=== PATIENT | female | born 1930 | race Caucasian/White ===

== ENCOUNTER 2018-03-07 08:27 | Inpatient (IN) ==
[2018-03-07] MEDS ORDERED: VANCOMYCIN INJ 1,000 MG in SODIUM CHLORIDE 0.9% 250 ML IV ONE (11:02)
[2018-03-07] MEDS ORDERED: MORPHINE 4 MG/1 ML VIAL IV PRN ×2 (11:05)
[2018-03-07] MEDS ORDERED: ONDANSETRON 4 MG/2 ML VIAL IV PRN (11:16)
[2018-03-07 13:14] LABS: Basophils % 0.2 % (0.0-0.8); Eosinophils % 0.1 % (0.00-10.9); Hematocrit 30.7 VOL% (35.7-47.0); Hemoglobin 10.2 GM/DL (12.0-16.0); Immature Granulocytes % 0.6 %; Immature Granulocytes Absolute 0.07 #; Lymphocytes # 0.4 10*3/uL (1.4-4.0); Lymphocytes % 3.4 % (21.3-54.2); Mean Corpuscular HGB Conc 33.2 GM/DL (32-36); Mean Corpuscular Hemoglobin 31 PG (27-34); Mean Corpuscular Volume 94.5 FL (87-102); Mean Platelet Volume 11.1 FL (9.6-12.0); Monocytes # 0.6 10*3/uL (0.11-0.8); Monocytes % 5.2 % (1.7-12.7); Neutrophils # 10.7 10*3/uL (1.4-7.4); Neutrophils % 90.5 % (38.7-73.9); Platelet Count 104 T/CUMM (130-400); Red Blood Count 3.25 MC/CUMM (3.8-5.5); Red Cell Distribution Width 13.5 % (9.3-17.3); White Blood Count 11.8 T/CUMM (4-12)
[2018-03-07 13:40] LABS: PT Patient Result 30.4 SECS
[2018-03-07 13:44] LABS: Calcium 8.5 MG/DL (8.5-10.1); Osmolality,Calculated 293.1 MOS/KG (273-304); Potassium 4.3 MMOL/L (3.5-5.1)
[2018-03-07 13:54] LABS: Lymphocytes 1 % (20-55); Segmented Neutrophils 94 % (50-85); Total Cells Counted 100
[2018-03-07 13:55] LABS: Hypochromasia 1+; Microcytosis Slight; Ovalocytes Few; Platelet Estimate Adequate
[2018-03-07] MEDS ORDERED: MAGNESIUM SULF RIDER 4 GM in PREMIX 1 EACH IV PRN (17:04)
[2018-03-07] MEDS: MAGNESIUM SULF RIDER 2 GM in PREMIX 1 EACH IV PRN (17:34)
[2018-03-07] MEDS: FUROSEMIDE 40 MG TABLET PO SCH (21:12)
[2018-03-07 22:20] LABS: Apearance,Urine CLEAR (Clear); Bacteria,Urine Occasional /HPF (Few); Bilirubin,Urine Negative (Negative); Blood, Urine Moderate mg/dL (Negative); Glucose,Urine (UA) Negative (Negative); Ketones,Urine Negative (Negative); Mucus,Urine Occasional /LPF (Occasional); Nitrite,Urine Negative (Negative); Protein,Urine Negative; RBC,Urine 13 /HPF (0-4); Urine Color Yellow (Yellow); Urine Urobilinogen < 2.0 EU/DL (0.2-1.0); WBC,Urine 1 /HPF (0-6)
[2018-03-08 03:39] LABS: Basophils % 0.3 % (0.0-0.8); Eosinophils # 0.2 10*3/uL (0.0-0.87); Hematocrit 26.8 VOL% (35.7-47.0); Hemoglobin 8.9 GM/DL (12.0-16.0); Immature Granulocytes % 0.4 %; Immature Granulocytes Absolute 0.03 #; Lymphocytes # 0.7 10*3/uL (1.4-4.0); Lymphocytes % 8.5 % (21.3-54.2); Mean Corpuscular HGB Conc 33.2 GM/DL (32-36); Mean Corpuscular Hemoglobin 31 PG (27-34); Mean Corpuscular Volume 93.4 FL (87-102); Mean Platelet Volume 11.3 FL (9.6-12.0); Monocytes # 0.5 10*3/uL (0.11-0.8); Monocytes % 6.5 % (1.7-12.7); Neutrophils # 6.2 10*3/uL (1.4-7.4); Neutrophils % 81.3 % (38.7-73.9); Platelet Count 95 T/CUMM (130-400); Red Blood Count 2.87 MC/CUMM (3.8-5.5); Red Cell Distribution Width 13.5 % (9.3-17.3); White Blood Count 7.7 T/CUMM (4-12)
[2018-03-08 03:45] LABS: INR 3.7; INR 3.8; PT Patient Result 37.5 SECS; PT Patient Result 38.1 SECS
[2018-03-08 04:03] LABS: Calcium 8.4 MG/DL (8.5-10.1); Osmolality,Calculated 287.4 MOS/KG (273-304); Potassium 4.1 MMOL/L (3.5-5.1)
[2018-03-08 04:09] LABS: Risk Ratio 2.05
[2018-03-08 04:10] LABS: Anisocytosis 1+; Band Neutrophils 3 % (0-10); Eosinophils 5 % (0-10); Lymphocytes 7 % (20-55); Ovalocytes 1+; Segmented Neutrophils 83 % (50-85); Total Cells Counted 100
[2018-03-08 04:11] LABS: Acanthocytes Few; Platelet Estimate Adequate
[2018-03-08] MEDS ORDERED: PHYTONADIONE 10 MG/1 ML AMP IV ONE (07:45)
[2018-03-08] MEDS: ACETAMINOPHEN 325 MG TABLET PO PRN ×2 (08:11→20:27)
[2018-03-08] MEDS: PANTOPRAZOLE 40 MG TABLET PO SCH (09:36)
[2018-03-08] MEDS: BISACODYL 5 MG TABLET PO SCH (09:36)
[2018-03-08] MEDS: POTASSIUM CHLORIDE 20 MEQ TABLET PO SCH (09:36)
[2018-03-08] MEDS: ANASTROZOLE 1 MG TABLET PO SCH (09:36)
[2018-03-08] MEDS: FUROSEMIDE 40 MG TABLET PO SCH ×2 (10:01→20:20)
[2018-03-08] MEDS ORDERED: ceFAZolin 1,000 MG in SYRINGE 1 EACH IV ONE (11:02)
[2018-03-09 06:20] LABS: Basophils % 0.1 % (0.0-0.8); Eosinophils # 0.1 10*3/uL (0.0-0.87); Eosinophils % 1.4 % (0.00-10.9); Hematocrit 26.6 VOL% (35.7-47.0); Hemoglobin 8.9 GM/DL (12.0-16.0); Immature Granulocytes % 0.6 %; Immature Granulocytes Absolute 0.06 #; Lymphocytes # 0.7 10*3/uL (1.4-4.0); Lymphocytes % 7.3 % (21.3-54.2); Mean Corpuscular HGB Conc 33.5 GM/DL (32-36); Mean Corpuscular Hemoglobin 31 PG (27-34); Mean Corpuscular Volume 92.7 FL (87-102); Mean Platelet Volume 11.9 FL (9.6-12.0); Monocytes # 0.8 10*3/uL (0.11-0.8); Monocytes % 8.4 % (1.7-12.7); Neutrophils % 82.2 % (38.7-73.9); Red Blood Count 2.87 MC/CUMM (3.8-5.5); Red Cell Distribution Width 13.5 % (9.3-17.3); White Blood Count 9.8 T/CUMM (4-12)
[2018-03-09 06:22] LABS: Platelet Count 92 T/CUMM (130-400)
[2018-03-09 06:24] LABS: INR 1.2; PT Patient Result 12.3 SECS
[2018-03-09 06:32] LABS: Calcium 8.6 MG/DL (8.5-10.1); Osmolality,Calculated 278.1 MOS/KG (273-304); Potassium 4.2 MMOL/L (3.5-5.1)
[2018-03-09 06:39] LABS: Hypochromasia 1+; Microcytosis Slight; Ovalocytes Slight; Platelet Estimate Decreased
[2018-03-09] MEDS ORDERED: VANCOMYCIN INJ 1,000 MG in SODIUM CHLORIDE 0.9% 250 ML IV ONE (07:05)
[2018-03-09] MEDS ORDERED: ceFAZolin 1,000 MG in SYRINGE 1 EACH IV ONE (10:00)
[2018-03-09] MEDS: FUROSEMIDE 40 MG TABLET PO SCH ×2 (11:40→20:26)
[2018-03-09] MEDS: BISACODYL 5 MG TABLET PO SCH (11:40)
[2018-03-09] MEDS: POTASSIUM CHLORIDE 20 MEQ TABLET PO SCH (11:40)
[2018-03-09] MEDS: ANASTROZOLE 1 MG TABLET PO SCH (11:40)
[2018-03-09] MEDS: PANTOPRAZOLE 40 MG TABLET PO SCH (11:41)
[2018-03-09] MEDS ORDERED: BACITRACIN OINT 0.9 GM PACK TOP ONE (12:32)
[2018-03-09] MEDS ORDERED: ceFAZolin 1,000 MG VIAL ONE (12:33)
[2018-03-09] MEDS ORDERED: BUPIVACAINE MPF 0.25% 30 ML VIAL ONE (13:26)
[2018-03-09] MEDS ORDERED: oxyCODONE IR 5 MG TABLET PO PRN (14:09)
[2018-03-09] MEDS ORDERED: DESFLURANE 1 UNIT/15 MINUTE INH ONE (14:22)
[2018-03-09] MEDS ORDERED: ETOMIDATE 40 MG/20 ML VIAL IV ONE (14:22)
[2018-03-09] MEDS ORDERED: GLYCOPYRROLATE 0.4 MG/2 ML VIAL ONE (14:22)
[2018-03-09] MEDS ORDERED: fentaNYL 100 MCG/2 ML VIAL ONE (14:22)
[2018-03-09] MEDS ORDERED: ROCURONIUM 100 MG/10 ML VIAL IV ONE (14:23)
[2018-03-09] MEDS ORDERED: NEOSTIGMINE 10 MG/10 ML VIAL ONE (14:23)
[2018-03-09] MEDS ORDERED: PHENYLEPHRINE 1 MG/10 ML SYRINGE IV ONE (14:23)
[2018-03-09] MEDS: LACTATED RINGERS 1,000 ML IV SCH (15:07)
[2018-03-09] MEDS: ceFAZolin 1,000 MG in SYRINGE 1 EACH IV SCH (18:07)
[2018-03-09] MEDS: ACETAMINOPHEN 500 MG TABLET PO SCH (18:12)
[2018-03-09] MEDS ORDERED: SODIUM CHLORIDE 0.9% 500 ML IV ONE ×2 (19:14→22:40)
[2018-03-09] MEDS: DOCUSATE SODIUM 100 MG CAPSULE PO SCH (20:25)
[2018-03-10] MEDS: ACETAMINOPHEN 500 MG TABLET PO SCH ×3 (01:30→12:05)
[2018-03-10] MEDS: LACTATED RINGERS 1,000 ML IV SCH (03:07)
[2018-03-10] MEDS ORDERED: ceFAZolin 1,000 MG in SYRINGE 1 EACH IV SCH (05:30)
[2018-03-10] MEDS: ceFAZolin 1,000 MG in SYRINGE 1 EACH IV SCH (06:04)
[2018-03-10 06:37] LABS: INR 1.2; PT Patient Result 12.3 SECS
[2018-03-10 06:57] LABS: Calcium 7.5 MG/DL (8.5-10.1); Osmolality,Calculated 280.8 MOS/KG (273-304); Potassium 4.3 MMOL/L (3.5-5.1)
[2018-03-10] MEDS ORDERED: ceFAZolin 1,000 MG in SYRINGE 1 EACH IV ONE (07:30)
[2018-03-10 07:33] LABS: Basophils % 0.2 % (0.0-0.8); Eosinophils # 0.3 10*3/uL (0.0-0.87); Eosinophils % 3.9 % (0.00-10.9); Hematocrit 22.2 VOL% (35.7-47.0); Hemoglobin 7.3 GM/DL (12.0-16.0); Immature Granulocytes % 0.8 %; Immature Granulocytes Absolute 0.07 #; Lymphocytes # 0.7 10*3/uL (1.4-4.0); Lymphocytes % 7.4 % (21.3-54.2); Mean Corpuscular HGB Conc 32.9 GM/DL (32-36); Mean Corpuscular Hemoglobin 32 PG (27-34); Mean Corpuscular Volume 97.8 FL (87-102); Mean Platelet Volume 11.6 FL (9.6-12.0); Monocytes # 0.7 10*3/uL (0.11-0.8); Monocytes % 8.4 % (1.7-12.7); Neutrophils % 79.3 % (38.7-73.9); Platelet Count 70 T/CUMM (130-400); Red Blood Count 2.27 MC/CUMM (3.8-5.5); Red Cell Distribution Width 13.6 % (9.3-17.3); White Blood Count 8.8 T/CUMM (4-12)
[2018-03-10 07:52] LABS: Hypochromasia 1+; Microcytosis Slight; Ovalocytes Slight; Platelet Estimate Decreased
[2018-03-10] MEDS ORDERED: SODIUM CHLORIDE 0.9% 1,000 ML IV PRN (08:26)
[2018-03-10] MEDS ORDERED: FUROSEMIDE 40 MG/4 ML VIAL IV ONE ×2 (10:00→21:30)
[2018-03-10] MEDS: MAGNESIUM SULF RIDER 2 GM in PREMIX 1 EACH IV PRN (10:22)
[2018-03-10] MEDS: PANTOPRAZOLE 40 MG TABLET PO SCH (10:24)
[2018-03-10] MEDS: ANASTROZOLE 1 MG TABLET PO SCH (10:24)
[2018-03-10] MEDS: POTASSIUM CHLORIDE 20 MEQ TABLET PO SCH (10:25)
[2018-03-10] MEDS: DOCUSATE SODIUM 100 MG CAPSULE PO SCH ×2 (10:25→21:49)
[2018-03-10] MEDS: BISACODYL 5 MG TABLET PO SCH (10:25)
[2018-03-10] MEDS: FUROSEMIDE 40 MG TABLET PO SCH ×2 (10:25→21:50)
[2018-03-10] MEDS: FONDAPARINUX 2.5 MG/0.5 ML SYRINGE SUBCUT SCH (10:30)
[2018-03-10] MEDS: WARFARIN 10 MG TABLET PO SCH (17:54)
[2018-03-10] MEDS ORDERED: WARFARIN 5 MG TABLET PO SCH (18:00)
[2018-03-11 06:53] LABS: Basophils % 0.1 % (0.0-0.8); Eosinophils # 0.3 10*3/uL (0.0-0.87); Eosinophils % 2.8 % (0.00-10.9); Hematocrit 26.3 VOL% (35.7-47.0); Immature Granulocytes % 0.9 %; Immature Granulocytes Absolute 0.09 #; Lymphocytes # 0.6 10*3/uL (1.4-4.0); Lymphocytes % 5.9 % (21.3-54.2); Mean Corpuscular HGB Conc 33.5 GM/DL (32-36); Mean Corpuscular Hemoglobin 30 PG (27-34); Mean Corpuscular Volume 89.5 FL (87-102); Monocytes # 0.8 10*3/uL (0.11-0.8); Monocytes % 7.6 % (1.7-12.7); Neutrophils # 8.7 10*3/uL (1.4-7.4); Neutrophils % 82.7 % (38.7-73.9); Red Cell Distribution Width 16.4 % (9.3-17.3); White Blood Count 10.5 T/CUMM (4-12)
[2018-03-11 06:55] LABS: Hemoglobin 8.8 GM/DL (12.0-16.0); Platelet Count 82 T/CUMM (130-400); Red Blood Count 2.94 MC/CUMM (3.8-5.5)
[2018-03-11 07:02] LABS: INR 1.3; PT Patient Result 13.5 SECS
[2018-03-11 07:10] LABS: Hypochromasia 1+; Platelet Estimate Decreased
[2018-03-11 07:11] LABS: Elliptocytes Few
[2018-03-11 07:18] LABS: Calcium 7.8 MG/DL (8.5-10.1); Osmolality,Calculated 280.1 MOS/KG (273-304); Potassium 4.2 MMOL/L (3.5-5.1)
[2018-03-11] MEDS: ANASTROZOLE 1 MG TABLET PO SCH (08:37)
[2018-03-11] MEDS: DOCUSATE SODIUM 100 MG CAPSULE PO SCH ×2 (08:37→20:18)
[2018-03-11] MEDS: PANTOPRAZOLE 40 MG TABLET PO SCH (08:38)
[2018-03-11] MEDS: BISACODYL 5 MG TABLET PO SCH (08:39)
[2018-03-11] MEDS: FUROSEMIDE 40 MG TABLET PO SCH ×2 (08:39→20:18)
[2018-03-11] MEDS: POTASSIUM CHLORIDE 20 MEQ TABLET PO SCH (08:39)
[2018-03-11] MEDS: FONDAPARINUX 2.5 MG/0.5 ML SYRINGE SUBCUT SCH (08:42)
[2018-03-11] MEDS: MAGNESIUM HYDROXIDE SUSP 30 ML UDCUP PO PRN ×2 (08:44→18:50)
[2018-03-11] MEDS: WARFARIN 10 MG TABLET PO SCH (18:50)
[2018-03-11] MEDS: ACETAMINOPHEN 325 MG TABLET PO PRN (20:18)
[2018-03-12] MEDS: MAGNESIUM HYDROXIDE SUSP 30 ML UDCUP PO PRN (06:12)
[2018-03-12 06:57] LABS: Basophils % 0.2 % (0.0-0.8); Eosinophils # 0.2 10*3/uL (0.0-0.87); Eosinophils % 2.2 % (0.00-10.9); Hematocrit 25.9 VOL% (35.7-47.0); Hemoglobin 8.6 GM/DL (12.0-16.0); Immature Granulocytes % 1.4 %; Immature Granulocytes Absolute 0.14 #; Lymphocytes # 0.7 10*3/uL (1.4-4.0); Lymphocytes % 6.5 % (21.3-54.2); Mean Corpuscular HGB Conc 33.2 GM/DL (32-36); Mean Corpuscular Hemoglobin 30 PG (27-34); Mean Corpuscular Volume 91.5 FL (87-102); Mean Platelet Volume 11.8 FL (9.6-12.0); Monocytes # 0.8 10*3/uL (0.11-0.8); Monocytes % 8.2 % (1.7-12.7); Neutrophils # 8.1 10*3/uL (1.4-7.4); Neutrophils % 81.5 % (38.7-73.9); Platelet Count 115 T/CUMM (130-400); Red Blood Count 2.83 MC/CUMM (3.8-5.5); Red Cell Distribution Width 16.1 % (9.3-17.3); White Blood Count 9.9 T/CUMM (4-12)
[2018-03-12 07:04] LABS: PT Patient Result 20.7 SECS
[2018-03-12 07:10] LABS: PT Patient Result 20.6 SECS
[2018-03-12 07:23] LABS: Calcium 7.5 MG/DL (8.5-10.1); Osmolality,Calculated 280.1 MOS/KG (273-304); Potassium 3.8 MMOL/L (3.5-5.1)
[2018-03-12] MEDS ORDERED: SODIUM CHLORIDE 0.9% 1,000 ML IV PRN (08:50)
[2018-03-12] MEDS ORDERED: FUROSEMIDE 40 MG/4 ML VIAL IV ONE (08:50)
[2018-03-12] MEDS: ANASTROZOLE 1 MG TABLET PO SCH (09:16)
[2018-03-12] MEDS: DOCUSATE SODIUM 100 MG CAPSULE PO SCH ×2 (09:16→21:10)
[2018-03-12] MEDS: FUROSEMIDE 40 MG TABLET PO SCH ×2 (09:16→21:10)
[2018-03-12] MEDS: POTASSIUM CHLORIDE 20 MEQ TABLET PO SCH (09:16)
[2018-03-12] MEDS: PANTOPRAZOLE 40 MG TABLET PO SCH (09:16)
[2018-03-12] MEDS: BISACODYL 5 MG TABLET PO SCH (09:16)
[2018-03-12] MEDS ORDERED: TUBERCULIN SKIN TEST 0.1 ML SYRINGE INTRADERM ONE (16:22)
[2018-03-12] MEDS: WARFARIN 10 MG TABLET PO SCH (19:02)
[2018-03-13] MEDS ORDERED: FUROSEMIDE 40 MG/4 ML VIAL IV ONE (02:00)
[2018-03-13 08:04] LABS: Basophils % 0.2 % (0.0-0.8); Eosinophils # 0.1 10*3/uL (0.0-0.87); Eosinophils % 1.4 % (0.00-10.9); Immature Granulocytes % 1.3 %; Immature Granulocytes Absolute 0.12 #; Lymphocytes # 0.6 10*3/uL (1.4-4.0); Lymphocytes % 6.2 % (21.3-54.2); Mean Corpuscular HGB Conc 33.3 GM/DL (32-36); Mean Corpuscular Hemoglobin 30 PG (27-34); Mean Corpuscular Volume 90.9 FL (87-102); Monocytes # 0.9 10*3/uL (0.11-0.8); Monocytes % 9.2 % (1.7-12.7); Neutrophils # 7.8 10*3/uL (1.4-7.4); Neutrophils % 81.7 % (38.7-73.9); Red Cell Distribution Width 15.8 % (9.3-17.3); White Blood Count 9.5 T/CUMM (4-12)
[2018-03-13 08:07] LABS: Red Blood Count 3.63 MC/CUMM (3.8-5.5)
[2018-03-13 08:08] LABS: Platelet Count 144 T/CUMM (130-400)
[2018-03-13 08:20] LABS: INR 2.4
[2018-03-13 08:25] LABS: PT Patient Result 24.4 SECS
[2018-03-13 08:38] LABS: Calcium 8.1 MG/DL (8.5-10.1)
[2018-03-13] MEDS: POTASSIUM CHLORIDE 20 MEQ TABLET PO SCH (09:08)
[2018-03-13] MEDS: ANASTROZOLE 1 MG TABLET PO SCH (09:09)
[2018-03-13] MEDS: PANTOPRAZOLE 40 MG TABLET PO SCH (09:10)
[2018-03-13] MEDS: BISACODYL 5 MG TABLET PO SCH (09:10)
[2018-03-13] MEDS: FUROSEMIDE 40 MG TABLET PO SCH (09:10)
[2018-03-13] MEDS: DOCUSATE SODIUM 100 MG CAPSULE PO SCH (09:10)
[2018-03-13 12:22] VITALS: BP 116/66
== END 2018-03-13 15:45 | disposition swing bed (61) | DRG 470 ==
LOC: EDUNIT# → EDBD → N.ED 08:27 → N.EDINP 10:39 → N.3E 12:34